=== PATIENT | male | born 1980 | race Native Hawaiian/Other Pacific Islander ===

== ENCOUNTER 2020-11-25 15:10 | Emergency (ER) | payer OTHER ==
[~2020-11-25] VITALS: Ht 172.7 cm; Wt 74.8 kg
[2020-11-25 15:14] VITALS: BP 144/85; TEMP 99.2
== END 2020-11-25 16:08 | disposition home or self-care (01) ==
LOC: ED 15:10
DX: N39.0 Urinary tract infection, site not specified (principal); M79.18 Myalgia, other site; M54.89 Other dorsalgia; W18.39XA Other fall on same level, initial encounter; Y92.89 Other specified places as the place of occurrence of the external cause
CPT/HCPCS: 81000; 87088; 99282